=== PATIENT | male | born 1980 ===

== ENCOUNTER 2022-03-15 14:30 | Emergency (ER) | payer MEDICARE, MEDICAID, SELFPAY ==
[2022-03-15 14:57] VITALS: BP 117/80; PULSE 61; RESP 18; TEMP 36.7; O2SAT 96; BMI 31.1
--- NOTE | 2022-03-15 14:58 | ED.GENADULT ---
HPI - General Adult General Chief complaint: Wound/Laceration Stated complaint: fell down puncture wound left knee Time Seen by Provider: 03/15/22 14:55 Source: patient Mode of arrival: Ambulatory Limitations: no limitations History of Present Illness HPI narrative: Patient is a 41-year-old male here for evaluation of an injury that he sustained to the front of his left knee. He tripped over an object at home landing on his left knee. It caused a cut to the knee. No other injuries from the event. They covered with a bandage prior to arrival. Unsure when last tetanus immunization was. Related Data Home Medications Medication Instructions Recorded Confirmed acetaminophen 325 mg tablet 500 mg PO DAILY PRN #0 tab 02/27/22 02/27/22 cholecalciferol (vitamin D3) 25 25 mcg PO DAILY 02/27/22 02/27/22 mcg (1,000 unit) capsule levothyroxine 50 mcg tablet 50 mcg PO DAILY tab 02/27/22 02/27/22 Allergies Allergy/AdvReac Type Severity Reaction Status Date / Time ibuprofen AdvReac Severe ulcers Verified 03/15/22 14:55 Review of Systems Musculoskeletal Musculoskeletal: Reports system reviewed and no additional complaints, except as documented Integumentary/Breasts Comments: Laceration left knee Neurologic Neurologic: Reports system reviewed and no additional complaints, except as documented Hematologic/Lymphatic On Anticoagulants: No Patient History Medical History Acquired hypothyroidism Down syndrome History of Hirschsprung's disease IBD (inflammatory bowel disease) Neoplasm of uncertain behavior of skin Overweight Sleep disorder Venous insufficiency Social History Smoking Status: Never smoker Smoking Status: Never smoker Exam Initial Vital Signs Initial Vital Signs: Vital Signs Temperature 98.1 F 03/15/22 14:57 Pulse Rate 61 03/15/22 14:57 Respiratory Rate 18 03/15/22 14:57 Blood Pressure 117/80 03/15/22 14:57 Pulse Oximetry 96 03/15/22 14:57 Const General: cooperative and comfortable Skin Other: 3 cm laceration anterior aspect of left knee distal to the patella. No active bleeding. Neuro Sensory Exam: no sensory deficits noted Extrem Other: Patient is able to do straight leg raise. Has tenderness over the area of the laceration. No posterior tenderness. ACL PCL MCL and LCL all intact. Procedures Laceration Repair Laceration 1: Site: lower extremity Side (If applicable): left Size (cm): 3 Description: linear Depth: simple, single layer Local Anesthetic: lidocaine 1% and with bicarb Amount of anesthesia used (mL): 5 Pre-repair: wound explored, irrigated extensively and deep structures intact Skin layer closed with: nylon Skin layer suture size: 3-0 Number of sutures: 5 Technique: simple, interrupted Course Orders Ordered: Discontinued Medications Bacitracin (Bacitracin Oint 0.9 Gm Pckt) 1 applic TOP NOW ONE Stop: 03/15/22 14:59 Last Admin: 03/15/22 15:09 Dose: 1 applic Documented by: ASTER Diphtheria/Tetanus/Acell Pertussis (Tet,Diph,Pertuss(Acell),Vac/Pf 0.5 Ml Syringe) 0.5 ml IM .ONCE ONE Stop: 03/15/22 15:04 Last Admin: 03/15/22 15:08 Dose: 0.5 ml Documented by: ASTER Lidocaine/Sodium Bicarbonate (Lido 1%/Sod Bicarb 8.4% (10ml) 10 Ml Syringe) 10 ml INJ NOW ONE Stop: 03/15/22 14:59 Last Admin: 03/15/22 15:08 Dose: 10 ml Documented by: ASTER Vital Signs Vital signs: Vital Signs - 8 hr 03/15/22 14:57 Temperature 98.1 F Pulse Rate 61 Respiratory Rate 18 Blood Pressure 117/80 Pulse Oximetry 96 Medical Decision Making MDM Narrative Medical decision making narrative: Low suspicion for fracture. The laceration does not involve the patella tendon. He is able to do straight leg raise. Laceration was closed as described above. His tetanus was updated. He was given care instructions and return precautions. He expressed understanding and agreement. Discharge Plan Departure Patient Disposition: Home Clinical Impression: Laceration Instructions: DI for Laceration Repair Activity Restrictions/Additional Instructions: The stitches do need to come out in the next 7-10 days. Until then you can put topical antibiotic ointment over the area. You can shower like normal. Your tetanus was updated today. Return to the emergency department for any new or worsening symptoms. Prescriptions: No Action acetaminophen 325 mg tablet 500 mg PO DAILY PRNQty: 0 0RF levothyroxine 50 mcg tablet 50 mcg PO DAILY 0RF cholecalciferol (vitamin D3) 25 mcg (1,000 unit) capsule 25 mcg PO DAILY 0RF Referrals: Jonathan Obregon MD [Primary Care Provider] - Visit Report Forms: Patient Portal/API
[2022-03-15] MEDS: TET,DIPH,PERTUSS(ACELL),VAC/PF 0.5 ML SYRINGE IM (15:08)
[2022-03-15] MEDS: LIDO 1%/SOD BICARB 8.4% (10ML) 10 ML SYRINGE INJ (15:08)
[2022-03-15] MEDS: BACITRACIN OINT 0.9 GM PCKT 1 APPLIC TOP (15:09)
== END 2022-03-15 15:30 | disposition home or self-care (01) ==
PROVIDERS: Emergency Provider Emergency Medicine; PCP Family Medicine
DX: S81.012A Laceration without foreign body, left knee, initial encounter (principal); W01.0XXA Fall on same level from slipping, tripping and stumbling without subsequent striking against object, initial encounter; Z23 Encounter for immunization
CPT/HCPCS: 12002; 90471; 99283; 90715

== ENCOUNTER → 2022-06-09 07:25 | Outpatient (CLI) | payer MEDICARE, MEDICAID, SELFPAY ==
[2022-06-09 08:31] LABS: Hematocrit 41.1 % (41-53); Hemoglobin 14.1 g/dL (13.5-17.5); Mean Corpuscular HGB Conc 34.3 % (30-36); Mean Corpuscular Hemoglobin 32.5 PG (26-34); Mean Corpuscular Volume 94.8 fL (80-100); Platelet Count 228 X10^3/uL (150-400); Red Blood Cell Count 4.33 X10^6/uL (4.5-5.9); White Blood Cell Count 2.9 X10^3/uL (4.5-11.0)
[2022-06-09 08:44] LABS: Hemoglobin A1C% w Est Avg Glu 5.4 % (4.0-6.0)
[2022-06-09 08:53] LABS: Alanine Aminotransferase 18 IU/L (<50); Albumin 3.9 g/dL (3.5-5.0); Albumin Globulin Ratio 1.2 (1.0-2.8); Alkaline Phosphatase 79 U/L (38-126); Aspartate Aminotransferase 25 IU/L (17-59); BUN Creatinine Ratio 16.2 (6-22); Bilirubin Total 0.9 mg/dL (0.2-1.3); Blood Urea Nitrogen 19 mg/dL (9-20); Calcium 8.8 mg/dL (8.4-10.2); Carbon Dioxide 25 mmol/L (22-32); Chloride 107 mmol/L (98-107); Cholesterol 176 mg/dL (140-199); Estimated Glomerular Filt Rate > 60 mL/min (>60); Globulin 3.3 g/dL (1.7-4.1); Glucose 94 mg/dL (70-100); HDL Cholesterol 72 mg/dL (40-60); HEMOLYSIS < 15 (0-50); LDL Cholesterol Calculated 96 mg/dL (<100); Potassium 4.5 mmol/L (3.4-5.1); Sodium 138 mmol/L (137-145); Total Protein 7.2 g/dL (6.3-8.2); Triglycerides 40 mg/dL (35-150)
[2022-06-09 09:08] LABS: HEMOLYSIS < 15 (0-50); Iron 114 ug/dL (49-181)
[2022-06-09 09:19] LABS: Percent Iron Saturation 36 % (20-50); Total Iron Binding Capacity 319 ug/dL (261-462); Transferrin 232 mg/dL (206-381)
[2022-06-09 09:36] LABS: TSH w/ Reflex to FT4 3.29 uIU/mL (0.47-4.68)
[2022-06-09 09:40] LABS: Vitamin B12 292 pg/mL (239-931)
== END ==
PROVIDERS: PCP Internal Medicine; Referring Provider Internal Medicine; Visit Provider Internal Medicine
DX: E03.9 Hypothyroidism, unspecified (principal); R73.01 Impaired fasting glucose; K52.9 Noninfective gastroenteritis and colitis, unspecified
CPT/HCPCS: 36415; 80053; 80061; 82607; 83036; 83540; 83550; 84443; 85027

== ENCOUNTER → 2022-06-10 13:08 | Outpatient (CLI) | payer MEDICARE, MEDICAID, SELFPAY ==
[2022-06-20 03:43] LABS: Methylmalonic Acid,Serum 195 nmol/L (0-378)
== END ==
PROVIDERS: PCP Internal Medicine; Visit Provider Internal Medicine
DX: E53.8 Deficiency of other specified B group vitamins (principal)
CPT/HCPCS: 83921

== ENCOUNTER → 2023-12-30 09:57 | Outpatient (CLI) | payer MEDICARE, MEDICAID, SELFPAY | LOC: LAB 09:58 | PROVIDERS: PCP Internal Medicine; Referring Provider Internal Medicine Infectious Disease; Visit Provider Internal Medicine Infectious Disease | DX: B89 Unspecified parasitic disease (principal) | CPT/HCPCS: 87177 ==

== ENCOUNTER → 2023-12-31 08:37 | Outpatient (CLI) | payer MEDICARE, MEDICAID, SELFPAY | PROVIDERS: PCP Internal Medicine; Referring Provider Internal Medicine Infectious Disease; Visit Provider Internal Medicine Infectious Disease | DX: B89 Unspecified parasitic disease (principal) | CPT/HCPCS: 87177 ==

== ENCOUNTER → 2024-01-01 11:47 | Outpatient (CLI) | payer MEDICARE, MEDICAID, SELFPAY | PROVIDERS: PCP Internal Medicine; Referring Provider Internal Medicine Infectious Disease; Visit Provider Internal Medicine Infectious Disease | DX: B89 Unspecified parasitic disease (principal) | CPT/HCPCS: 87177 ==

== ENCOUNTER → 2025-09-28 07:53 | Outpatient (CLI) | payer MEDICARE, MEDICAID, SELFPAY ==
--- NOTE | 2025-09-28 | DI.RAD.S_ITS ---
PROCEDURE: XR HIP W PEL IF DONE BILAT 2V INDICATIONS: hip pain TECHNIQUE: AP pelvis with lateral view(s) of both hip(s). COMPARISON: [facility], CR, XR LUMBAR SPINE 2-3V, 09/28/2025, 8:25. FINDINGS: Bones: No fractures or dislocations. Pelvic ring appears intact. No suspicious bony lesions. There is [id number] left and mild right hip joint space narrowing. Soft tissues: The visualized bowel gas pattern is normal. No suspicious soft tissue calcifications. IMPRESSION: Hip degenerative changes are seen by plain film, left worse than right. If it would be helpful for clinical management decision making, please consider a dedicated hip MRI for further evaluation (assuming that there is no contraindication). If there is strong clinical concern for a labral abnormality, this should be performed according to the arthrogram protocol. Dictated by: Wolfgang Anderson M.D. on 09/29/2025 at 12:04 Approved by: Wolfgang Anderson M.D. on 09/29/2025 at 12:05
--- NOTE | 2025-09-28 07:55 | DI.RAD.S_ITS ---
PROCEDURE: XR LUMBAR SPINE 2-3V INDICATIONS: Discitis, unspecified, lumbar region TECHNIQUE: 3 views of the lumbar spine were acquired. COMPARISON: None. FINDINGS/IMPRESSION: Moderate levoscoliosis of the lumbar spine. Straightening of the lumbar spine. Vertebral body height of the lumbar spine is well maintained. Multilevel degenerative disease, most pronounced and severe at L3-4. Mild lower lumbar facet arthropathy. Mild degenerative change of the left sacroiliac joint. Dictated by: Macarena Mac M.D. on 09/28/2025 at 15:14 Approved by: Macarena Mac M.D. on 09/28/2025 at 15:16
== END ==
PROVIDERS: PCP Registered Nurse; Referring Provider Registered Nurse; Visit Provider Registered Nurse
DX: M46.46 Discitis, unspecified, lumbar region (principal); M47.816 Spondylosis without myelopathy or radiculopathy, lumbar region; M25.551 Pain in right hip; M25.552 Pain in left hip; M41.9 Scoliosis, unspecified
CPT/HCPCS: 72100; 73521